=== PATIENT | male | born 2000 | race African-American/Black ===

== ENCOUNTER 2024-05-16 19:05 | Emergency (ER) | payer BC ==
[~2024-05-16] VITALS: Ht 175.3 cm; Wt 73.2 kg
[2024-05-16 19:10] VITALS: BP 125/72; PULSE 68; RESP 16; TEMP 98.3
[2024-05-16] MEDS ORDERED: KETO15CR2 TP (22:44)
[2024-05-16] MEDS ORDERED: FLUC150T61 PO (22:44)
[2024-05-16] MEDS ORDERED: IBUP-1554 PO (22:53)
[2024-05-16] MEDS: IBUPROFEN 600 MG TABLET PO ONE (23:22)
== END 2024-05-16 23:27 | disposition home or self-care (01) ==
LOC: EMS 19:05
DX: B36.0 Pityriasis versicolor (principal); M54.50 Low back pain, unspecified; Z88.6 Allergy status to analgesic agent
CPT/HCPCS: 99283